=== PATIENT | male | born 1965 | race Caucasian/White ===

== ENCOUNTER 2025-02-08 06:21 | Day surgery (SDC) | payer OTHER, SELFPAY ==
[2025-01-24 10:48] LABS: Hematocrit 35.0 % (39.0-52.0); Hemoglobin 11.6 g/dL (13.0-18.0); Mean Corp Hgb Conc. 33.1 g/dL (33.0-37.0); Mean Corpuscular Volume 94.9 fL (80.0-94.0); Platelet Count 250 10^3/uL (130-400); Red Cell Dist. Width 12.3 % (11.5-14.5)
[2025-01-24 11:13] LABS: ALT (SGPT) 17 U/L (0-50); AST (SGOT) 20 U/L (17-59); Albumin 4.7 g/dl (3.5-5.0); Alkaline Phosphatase 55 U/L (38-126); Blood Urea Nitrogen 20 mg/dl (9-20); Calcium 10.1 mg/dl (8.4-10.2); Carbon Dioxide 30 mmol/L (22-30); Chloride 102 mmol/L (98-107); Glucose 120 mg/dl (70-99); Potassium 5.2 mmol/L (3.5-5.1); Sodium 137 mmol/L (135-145); Total Protein 7.7 g/dl (6.3-8.2); eGFR > 60.00
[2025-01-24 11:18] LABS: Iron 71 ug/dl (49-181)
[2025-01-24 11:27] LABS: Total Iron Binding Capacity 325 ug/dl (261-462)
[2025-01-24 11:32] LABS: Glycohemoglobin (HgbA1c) 5.5 % (4.0-5.9)
[2025-01-24 12:29] LABS: Ferritin 136.0 ng/ml (17.9-464.0)
[2025-01-24 13:00] LABS: Folate 15.5 ng/ml (2.76-20); Vitamin B12 217 pg/ml (239-931)
[2025-01-24 13:53] VITALS: BMI 29.2
[2025-01-24 14:51] VITALS: BMI 29.2
--- NOTE | 2025-01-27 14:43 | CM ---
Demographics: staying with family in [place]
Living situation: staying with family
Support Person Pos t Operatively: brother
History of
VN: history, not currently on service
SNF: no
Outpatient: 'somewhere in [place]', patient stated he made an appointment
Has patient purchased required equipment: yes
PCP: confirmed
Pharmacy: [facility]
Post Operative Discharge Plan: [place], home with outpatient PT
--- NOTE | 2025-02-06 13:22 | PTCARENOTE ---
Patients PCP (01/23) ECG and 01/[address] Rivas- no additional interventions required.
--- NOTE | 2025-02-07 15:16 | W.PREADMORTH ---
Ortho Preadmission Testing
-
Spoke to pain mgmt ([facility] in [place]) - pt was Rx today Percocet 10/325 mg.
Dosing is 1 tab every 6 hours as needed. May take 2nd tablet if in significant pain.
[2025-02-08] VITALS (7 sets, daily range): BP systolic 122–148; BP diastolic 80–98
--- NOTE | 2025-02-08 08:11 | W.PN.UPDATE ---
Update Note
Progress Note Update
Osteonecrosis of the L hip s/p L HERMAN w/ Dr Stallings 02/08/25
DVT prophylaxis - ASA, b/l venous foot pumps
HTN - + parameters - monitor BP
COPD
VANIA, status post Inspire device 03/2022
- Monitor O2
- IS
- Resume inhaler. Will change to daily dosing during admission
- Consider Decadron to aid in lung perfusion
NIDDM, A1c 5.5 - monitor BS
- Resume home meds
- Add SSI AC, low dose Lantus HS to accomodate for potential post-surgical BS elevations during admission
- Diabetic, carb controlled diet
- Would benefit from prophylactic abx upon d/c d/t this and recent tobacco abuse
GERD - continue Pepcid BID
Mild cognitive deficits - attempt to minimize opioids as able; however pt is opioid dependent
- Fall precautions
Peripheral neuropathy - continue Gabapentin
- Consider Lyrica if Gabapentin ineffective
Chronic pain syndrome with opioid dependence - Oxycodone 10 mg q4hprn for mod pain, 15 mg q4hprn for severe pain prn during admission
- Upon d/c, pain mgmt has Rx Percocet 10/325 mg q6hprn. Can take 2nd tab as needed
- Continue Flexeril, Gabapentin, Indomethacin
- Monitor pain and adjust meds prn
Pernicious anemia - non-invasive hgb in AM
- B12 IM while inpatient. Will likely transition to PO upon d/c
Osteoarthritis
Hyperlipidemia
Chronic peripheral edema
Non-obstructive coronary artery disease per cardiac cath 2015
Colon polyps
Nephrolithiasis
Degenerative disc disease.
Glaucoma
Mild hyperkalemia
Recent tobacco abuse
[2025-02-08 13:58] LABS: Glucose - Point of Care 111 mg/dl (70-99)
[2025-02-08] MEDS: NORMOSOL-R/PLASMALYTE-A 1000 IV ×2 (14:21→19:34)
[2025-02-08] MEDS: TYLENOL 650 MG PO ×3 (14:22→23:04)
[2025-02-08] MEDS: CELEBREX 200 MG PO (14:22)
[2025-02-08] MEDS: ROXICODONE 5 MG PO (17:16)
[2025-02-08] MEDS: TORADOL 10 MG IV (17:17)
[2025-02-08] MEDS: DILAUDID 0.5 MG IV (17:29)
[2025-02-08 17:41] LABS: Glucose - Point of Care 177 mg/dl (70-99)
--- NOTE | 2025-02-08 18:00 | OR.RPT ---
Operative Report
Operative Report
Orthopaedic Surgery Operative Note
DATE OF OPERATION: 02/08/2025
PREOPERATIVE DIAGNOSES: Osteonecrosis and secondary osteoarthritis, left hip
POSTOPERATIVE DIAGNOSES: Same
OPERATION PERFORMED: Left total hip arthroplasty (CPT 09914 with 22 modifier).
SURGEON: Jamil Stallings MD
CONVERTING TECHNICIAN: Ariel Odom PA-C who helped with patient and limb positioning and retraction
ANESTHESIA: General after attempted spinal
COMPLICATIONS: None.
ESTIMATED BLOOD LOSS: 100 mL.
DRAINS: None
SPECIMEN: None
FINDINGS: Separation of femoral head from femoral neck with collapse of the head; posterior superior acetabular wear with pseudoacetabulum formation, advanced articular cartilage wear.
IMPLANTS:
Biomet G7 Acetabular Shell, cluster hole, size 54
Biomet G7 Highly Crosslinked PE Liner, neutral
Niecy Acetabular bone screw, 6.5mm x1
Niecy M/L Taper femoral stem, size 13.5 with standard neck length and extended offset
Biolox Ceramic Head, size 40mm +0
INDICATIONS: The patient presented to my office with debilitating left hip pain due to osteonecrosis with femoral head collapse. We reviewed the natural history of this problem, as well as the risks, benefits, and alternatives of various treatment
options. The patient exhausted all nonoperative treatment options and wished to proceed with hip replacement surgery. The patient understood the risks which included, but were not limited to, bleeding, infection, failure to relieve pain, more pain
than preop, damage to blood vessels and nerves, need for reoperation, mechanical failure of the implants, wound healing problems, stiffness, instability, blood clot, pulmonary embolism, myocardial infarction, pneumonia, arrhythmia, CVA, and .
The patient accepted these risks and wished to proceed. All questions were answered, and informed consent was obtained.
PROCEDURE IN DETAIL: The patient was identified in the preoperative holding area. The left hip was identified as the operative site. The patient was taken in the operating room and transferred to the operative table. General anesthesia was
performed. IV antibiotics and tranexamic acid were administered. The patient was placed in the lateral position with Stulberg hip positioners. Axillary roll was placed. The down leg was well padded. All bony prominences were well padded. The
operative limb was prepped and draped in the usual sterile fashion.
Time out was performed. A posterolateral approach to the hip was used. The skin incision was centered over the greater trochanter. This was taken down sharply through subcutaneous tissues. Meticulous hemostasis was achieved throughout the case with
electrocautery. We split the fascia valerie in line with skin incision. I split the gluteus cierra bluntly. We cauterized all crossing vessels as we split it. I palpated the sciatic nerve and made sure it was well posterior in the operative field. It
was protected throughout the case.
I performed a partial bursectomy to identify the short external rotators. The gluteus medius and minimus were identified and retracted anteriorly. I incised the piriformis tendon and conjoint tendon at their insertions. These were tagged for later
repair. I then performed a trapezoidal capsulotomy. The edges were tagged for later repair. I referenced the cut edge of the capsular flap to 2 fixed points on the greater trochanter for assistance with recreation of limb length and offset. I then
dislocated the hip posteriorly. The base of the femoral head was attached to the neck, but the proximal head was collapsed and scarred into the posterior superior capsule. I performed a femoral neck osteotomy approximately 10 mm above the lesser
trochanter, as per preoperative templating. The collapsed femoral head was dissected from the surrounding scar tissue and removed in pieces.
I placed a curve hohmann retractor over the anterior lip of the acetabulum between the labrum and the anterior hip capsule. A second retractor was placed inferiorly just distal to the transverse acetabular ligament. Circumferential view of the
acetabulum was achieved. There was extensive osteophyte formation as well as posterior superior wear of the acetabulum with pseudoacetabulum formation about the ilium. I incised the labrum and pulvinar with electrocautery. The MANOLO was identified as
landmark for inferior acetabulum as well as the anterior and posterior columns. I started with a 51 mm reamer and reamed down to the medial wall. I then sequentially reamed up to a 53mm reamer. This gave a nice bed of bleeding bone with excellent
column support anteriorly and posteriorly. I impacted the acetabular shell in approximately 40 degrees of abduction and 20 degrees of anteversion. I matched the anteversion of the transverse acetabular ligament. I also made sure that the anterior
rim of the socket was not proud of the anterior wall to minimize the chance of iliopsoas tendinitis. I confirmed the cup was well-seated. I placed 1 ileal screw in the posterior superior quadrant. I then impacted a neutral liner and confirmed it was
well seated with the locking mechanism.
On the femoral side, I use a box osteotome to open the proximal starting point. I found the canal with a Charnley awl and a lateralizing reamer. I then used the Niecy M/L taper broaches sequentially to prepare the femoral canal. The size 13.5 came
to a stop at the desired level and had excellent axial and rotational stability. We trialed with a trial ball head. The hip was taken through a complete range of motion. It was noted to be stable in extension without impingement. It was stable in
the position of sleep and in flexion with internal rotation. The limb length and offset were checked compared to the capsular flap and was appropriate.
I removed the trials. I impacted the femoral implant to match the [place] version. It had excellent axial and rotational stability. Trial ball head was placed, and I reduced the hip and took the hip through a complete range of motion. There was no
impingement in external rotation and extension. Position of sleep was stable. At 90 degrees of flexion and slight adduction, the hip could be internally rotated to 90 degrees with no subluxation. I palpated the sciatic nerve, which was tension free
and unharmed. Based on our capsular flap measurement, we had restored the offset and leg length. The trial ball head was removed, and the final ball head was impacted onto a clean and dry Marcelo taper. The hip was reduced.
A dilute betadine soak was performed for approximately 3 minutes, and then the hip was copiously irrigated. I repaired the capsule, piriformis, and conjoint tendon with #2 Ethibond to drill holes in the greater trochanter. Local anesthetic was
injected. The fascia valerie was closed with #1 PDS in running fashion. The subcutaneous tissues were closed with 2-0 monofilament in running fashion. The skin was reapproximated with 3-0 monofilament subcuticular suture. I placed a skin glue dressing
followed by a Mepilex Ag dressing. The patient awoke from anesthesia without difficulty. Sponge and instrument counts were correct x2 at the end of the case.
I was present and participated in the entire procedure. I checked leg length at the ankles after transfer on the bed which was equal. The patient was sent to the recovery room in stable condition.
Note, 22 modifier was added for complexity due to collapse of femoral head and marked deformity of acetabulum requiring 20 additional minutes for osteophyte removal, removal of sections of femoral head from the ilium, and implanting the components
Denny Stallings MD
--- NOTE | 2025-02-08 18:45 | PTCARENOTE ---
Pt received from the PACU via bed. Transport was w/o incident. Pt is AAOx3, left leg with Mepilex dressing, C/D/I, no drainage noted at this time. VSS, Pt is afebrile. Pt instructed on plan of care, Pt verbalized understanding of instructions.
Call carmichael is within reach.
[2025-02-08] MEDS: NOVOLOG FLEXPEN-MODERATE RESISTANCE 1 UNITS SC (19:35)
[2025-02-08] MEDS: CRESTOR 10 MG PO (19:36)
[2025-02-08] MEDS: SENOKOT 17.2 MG PO (19:37)
[2025-02-08] MEDS: GLUCOPHAGE 500 MG PO (19:37)
[2025-02-08] MEDS: ASPIRIN 325 MG PO (19:38)
[2025-02-08] MEDS: COLACE 100 MG PO (19:38)
[2025-02-08] MEDS: FLORASTOR 250 MG PO (19:52)
[2025-02-08] MEDS: CYANOCOBALAMIN 1000 MCG IM (19:52)
[2025-02-08] MEDS: BACTROBAN 2% OINTMENT 1 APPLIC NASAL (19:53)
[2025-02-08] MEDS: ROXICODONE 15 MG PO (20:01)
[2025-02-08] MEDS: SYMBICORT 80/4.5 MCG INHALER INH (20:15)
[2025-02-08] MEDS: ABILIFY 5 MG PO (21:18)
[2025-02-08] MEDS: FLEXERIL 10 MG PO (21:18)
[2025-02-08] MEDS: PEPCID 20 MG PO (21:18)
[2025-02-08] MEDS: NEURONTIN 600 MG PO (21:18)
[2025-02-08] MEDS: XALATAN OPHTHALMIC SOLUTION 1 DROP OPHTH (21:18)
[2025-02-08] MEDS: ANCEF 5 IV (21:18)
[2025-02-08 21:39] LABS: Glucose - Point of Care 213 mg/dl (70-99)
[2025-02-08] MEDS: LANTUS 0.05 UNITS SC (21:48)
[2025-02-09] MEDS: ROXICODONE 15 MG PO ×3 (01:11→12:20)
[2025-02-09] MEDS: TYLENOL 650 MG PO ×3 (03:08→12:19)
[2025-02-09 03:48] VITALS: BP 116/74
[2025-02-09] MEDS: ANCEF 5 IV (05:06)
[2025-02-09 07:00] VITALS: BP 134/84
[2025-02-09 07:16] LABS: Glucose - Point of Care 106 mg/dl (70-99)
[2025-02-09] MEDS: SPIRIVA RESPIMAT 2.5 MCG 2 PUFF INH (07:41)
[2025-02-09] MEDS: SYMBICORT 80/4.5 MCG INHALER 2 PUFF INH (07:41)
[2025-02-09] MEDS: NOVOLOG FLEXPEN-MODERATE RESISTANCE SC ×2 (08:12→11:31)
[2025-02-09] MEDS: ASPIRIN 325 MG PO (08:13)
[2025-02-09] MEDS: SENOKOT 17.2 MG PO (08:13)
[2025-02-09] MEDS: NEURONTIN 600 MG PO (08:13)
[2025-02-09] MEDS: GLUCOPHAGE 500 MG PO (08:14)
[2025-02-09] MEDS: FLORASTOR 250 MG PO (08:14)
[2025-02-09] MEDS: CRESTOR 10 MG PO (08:14)
[2025-02-09] MEDS: COLACE 100 MG PO (08:14)
[2025-02-09] MEDS: FLEXERIL 10 MG PO (08:15)
[2025-02-09] MEDS: INDOCIN 25 MG PO (08:17)
[2025-02-09] MEDS: CYANOCOBALAMIN 1000 MCG IM (08:17)
[2025-02-09] MEDS: BACTROBAN 2% OINTMENT 1 APPLIC NASAL (08:18)
--- NOTE | 2025-02-09 09:02 | CM ---
Patient confirmed outpatient PT/OT appointment at [facility]. Patient will be staying with his family in [facility].
Plan: Home , outpatient PT.
--- NOTE | 2025-02-09 09:51 | W.PN.ORTHO ---
Today's Communication / Plan
-
Await PT and OT recs.
D/c later today if remaining clinically stable.
Assessment
.
Distal Motor Intact: Yes
Dressing:
Clean, dry and intact.
Assessment:
Osteonecrosis of the L hip s/p L HERMAN w/ Dr Stallings 02/08/25
DVT prophylaxis - ASA, b/l venous foot pumps
HTN - + parameters - BPs stable overall
COPD
VANIA, status post Inspire device 03/2022
- O2 stable on RA w/ measures below
- IS
- Resume inhaler. Will change to daily dosing during admission
- Consider Decadron to aid in lung perfusion
NIDDM, A1c 5.5 - BS readings initially elevated 2* surgical stress, IV steroids in OR; however, BS readings are notably improving w/ measures below
- Resumed home meds
- Added SSI AC, low dose Lantus HS to accomodate for potential post-surgical BS elevations during admission
- Diabetic, carb controlled diet
- Would benefit from prophylactic abx upon d/c d/t this and recent tobacco abuse
GERD - continue Pepcid BID
Mild cognitive deficits - attempt to minimize opioids as able; however pt is opioid dependent
- Fall precautions
Peripheral neuropathy - continue Gabapentin
- Consider Lyrica if Gabapentin ineffective
Chronic pain syndrome with opioid dependence - Oxycodone 10 mg q4hprn for mod pain, 15 mg q4hprn for severe pain prn during admission
- Upon d/c, pain mgmt has Rx Percocet 10/325 mg q6hprn. Can take 2nd tab as needed
- Continue Flexeril, Gabapentin, Indomethacin
- Pt reporting higher levels of pain overnight; however, he appears comfortable and is working w/ therapy currently w/o issue. Will continue same pain regimen upon d/c. Pt aware to call pain explosive specialist should pain meds ever become ineffective
Pernicious anemia - non-invasive hgb 9.5 POD 1
- Result partially hemodilutional d/t IVF overnight
- Pt is asymptomatic, hemodynamically stable
- B12 IM while inpatient. Will transition to PO upon d/c
Osteoarthritis
Hyperlipidemia
Chronic peripheral edema
Non-obstructive coronary artery disease per cardiac cath 2015
Colon polyps
Nephrolithiasis
Degenerative disc disease.
Glaucoma
Mild hyperkalemia
Recent tobacco abuse
Plan
.
Surgery / Date: Kimi SUTTON w/ Dr Stallings 02/08/25
DVT Prophylaxis: Aspirin
Activity:
Out of bed.
PT/OT
Discharge Plan: Home w/ Outpatient PT
Subjective
.
.:
Patient resting comfortably in his bed.
Denies any new significant complaints.
Eager for potential d/c today.
Vital Signs and Labs
.
Vital Signs and Labs:
Lab Results
01/24/25 09:44
01/24/25 09:45
Temp Pulse Resp BP Pulse Ox
97.7 F 97 16 134/84 96
02/09/25 07:00 02/09/25 07:00 02/09/25 07:49 02/09/25 07:00 02/09/25 07:49
Non-invasive Hgb result: 9.5
Physical Exam
-
HEENT: No pallor, cyanosis, or jaundice. Throat clear.
NECK: Supple. No JVD.
RESPIRATORY: Lungs clear to auscultation.
CVS: S1, S2 normal. RRR.�
ABDOMEN: Soft, non-tender. No distension.
EXTREMITIES: Mild bruising along L hip. Strength equal, no calf pain with palpation/dorsiflexion. Calves soft.
INSTRUMENT ASSEMBLER: AOx3. No focal deficits. hollow handle bench worker grossly intact
[2025-02-09 09:52] VITALS: BP 147/98; PULSE 96; O2SAT 98
--- NOTE | 2025-02-09 10:09 | W.DS.TRANS ---
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
-
Discharge Instructions:
Discharge Diagnosis/Procedures Osteonecrosis of the left hip s/p left HERMAN w/ Dr
Steere 02/08/25
Diet Diabetic, Carb Controlled
Additional Diets Adequate hydration, minimize opioids, and wear
TEDs stockings to prevent low blood pressure/
dizziness.
Activity As tolerated,With Walker
Driving Restrictions Not until seen by your Dr
Bathing Restrictions OK to Shower
Other Services PT
Wound Care Leave dressing on until seen by surgeon's office
for follow-up.
Instructions:
Stand-Alone Forms: Total Hip/Knee Replacement D/C
Changes to Home Medications: Yes
Discharge Medications:
DC Medications w/original date entered in [employer]
aripiprazole 5 mg tablet 5 mg PO HS 01/20/25
famotidine 40 mg tablet 40 mg PO BID 01/20/25
latanoprost 0.005 % eye drops 1 drp ophthalmic (eye) HS 01/20/25
metformin 500 mg tablet 500 mg PO BID 01/20/25
rosuvastatin 10 mg tablet 10 mg PO DAILY 01/20/25
mupirocin 2 % topical ointment 1 applic intranasal BID #1 tube 01/24/25
Saccharomyces boulardii 250 mg capsule (Florastor) 250 mg PO BID #14 caps 02/09/25
acetaminophen 325 mg tablet 650 mg (2 x 325 mg) PO Q6HPRN PRN mild pain #30 tabs 02/09/25
aspirin 325 mg tablet 325 mg PO DAILY #30 tabs 02/09/25
cefadroxil 500 mg capsule 500 mg PO BID #14 caps 02/09/25
cyanocobalamin (vitamin B-12) 1,000 mcg capsule 1,000 mcg PO DAILY #30 caps 02/09/25
cyclobenzaprine 10 mg tablet 10 mg PO TID@0700,1400,2200 #1 tab 02/09/25
docusate sodium 100 mg capsule 100 mg PO BID #30 caps 02/09/25
fluticasone fur. 100 mcg-umeclid 62.5 mcg-vilant 25 mcg inhalat.powder (Trelegy Ellipta) 1 inh inhalation DAILYPRN PRN SOB #0 ea 02/09/25
gabapentin 800 mg tablet 800 mg PO TID neuropathic pain #1 tab 02/09/25
indomethacin 25 mg capsule 25 mg PO BID #1 cap 02/09/25
losartan 100 mg tablet 100 mg PO DAILY #1 tab 02/09/25
magnesium hydroxide 400 mg/5 mL oral suspension (Milk of Magnesia) 30 ml PO HS PRN constipation #3,780 mL 02/09/25
ondansetron HCl 4 mg tablet 4 mg PO Q6H PRN nausea and vomiting #30 tabs 02/09/25
oxycodone-acetaminophen 10 mg-325 mg tablet 1 tab PO Q6H PRN severe pain #120 tabs 02/09/25
sennosides 8.6 mg tablet (Aubrie-tanya) 17.2 mg (2 x 8.6 mg) PO BID #30 tabs 02/09/25
Home Medication Changes
Saccharomyces boulardii 250 mg capsule (Florastor) 250 mg PO BID #14 caps 02/09/25
acetaminophen 325 mg tablet 650 mg (2 x 325 mg) PO Q6HPRN PRN mild pain #30 tabs 02/09/25
aspirin 325 mg tablet 325 mg PO DAILY #30 tabs 02/09/25
cefadroxil 500 mg capsule 500 mg PO BID #14 caps 02/09/25
cyanocobalamin (vitamin B-12) 1,000 mcg capsule 1,000 mcg PO DAILY #30 caps 02/09/25
docusate sodium 100 mg capsule 100 mg PO BID #30 caps 02/09/25
gabapentin 800 mg tablet 800 mg PO TID neuropathic pain #1 tab 02/09/25
magnesium hydroxide 400 mg/5 mL oral suspension (Milk of Magnesia) 30 ml PO HS PRN constipation #3,780 mL 02/09/25
ondansetron HCl 4 mg tablet 4 mg PO Q6H PRN nausea and vomiting #30 tabs 02/09/25
oxycodone-acetaminophen 10 mg-325 mg tablet 1 tab PO Q6H PRN severe pain #120 tabs 02/09/25
sennosides 8.6 mg tablet (Aubrie-tanya) 17.2 mg (2 x 8.6 mg) PO BID #30 tabs 02/09/25
Pending Results: No
[2025-02-09 11:00] VITALS: BP 127/85
[2025-02-09 11:01] VITALS: BP 127/85
[2025-02-09 11:27] LABS: Glucose - Point of Care 125 mg/dl (70-99)
== END 2025-02-09 12:40 | disposition home or self-care (01) ==
LOC: SDS 06:21
PROVIDERS: ATTENDING PHYSICIAN Orthopaedic Surgery; FAMILY PHYSICIAN Nurse Practitioner Family; OTHER PHYSICIAN Physician Assistant
DX: M16.12 Unilateral primary osteoarthritis, left hip (principal); M87.9 Osteonecrosis, unspecified
CPT/HCPCS: 27130; 36415; 73502; 80053; 82607; 82728; 82746; 82962; 83036; 83540; 83550; 85027; 86850; 86900; 86901; 87070; 93005; 94640; 97110; 97116; 97163; 97166; 97535; C1713; C1776